=== PATIENT | female | born 1980 | race Caucasian/White ===

== ENCOUNTER 2016-08-26 02:41 | Emergency (ER) | payer OTHER ==
[2016-08-26 06:08] LABS: HEMOGLOBIN 11.6 gm/dl (12.3-15.3); RED BLOOD COUNT 4.61 M/UL (4.00-5.10)
[2016-08-26 06:33] LABS: BUN/CREATININE RATIO 11 (0-10)
== END 2016-08-26 09:22 | disposition home or self-care (01) ==
LOC: ER1 02:41
PROVIDERS: Physician Assistant
DX: R07.2 Precordial pain (principal); K21.9 Gastro-esophageal reflux disease without esophagitis; J45.909 Unspecified asthma, uncomplicated; F17.210 Nicotine dependence, cigarettes, uncomplicated; Z79.899 Other long term (current) drug therapy
CPT/HCPCS: 36415; 71010; 80053; 82550; 82553; 83874; 84484; 85025; 85379; 93005; 99285

== ENCOUNTER 2021-05-03 12:26 | Emergency (ER) | payer OTHER ==
[~2021-05-03 12:26] MED LIST: BACITRACIN-POL3.5 GM OU; BACTRIM DS TAB1 EACH PO; COLACE 100MG C100 MG PO; GLUCOPHAGE500 MG PO; KEFLEX CAP 500500 MG PO; OMEPRAZOLE20 MG PO; PROVENTIL HFA6.7 GM INH; TESSALON PERLE100 MG PO; VENTOLIN HFA 66.7 GM INH; ZITHROMAX250 MG PO; ZYRTEC10 MG PO
[2021-05-03 13:10] LABS: HEMOGLOBIN 9.4 gm/dl (12.3-15.3); RED BLOOD COUNT 4.64 M/UL (4.00-5.10); WHITE BLOOD COUNT 17.3 K/UL (4.5-11.0)
[2021-05-03 13:34] LABS: BUN/CREATININE RATIO 10 (0-10)
[2021-05-03] MEDS ORDERED: CEPHALEXIN500 M1 PO (18:35)
[2021-05-03] MEDS ORDERED: BACTRIM DS TAB1 EACH PO (18:35)
[2021-05-03] MEDS ORDERED: HYDROCODONE-AC1 EACH PO (19:23)
== END 2021-05-03 19:45 | disposition home or self-care (01) ==
LOC: ER1 12:26
PROVIDERS: Student in an Organized Health Care Education/Training Program
DX: L02.215 Cutaneous abscess of perineum (principal); R73.9 Hyperglycemia, unspecified; D64.9 Anemia, unspecified; L02.31 Cutaneous abscess of buttock
CPT/HCPCS: 10060; 80053; 84703; 85025; 99283; J2543; Q9967